=== PATIENT | male | born 1970 | race American Indian/Alaskan Native ===

== ENCOUNTER 2019-04-18 10:00 | Observation (INO) | payer BC ==
[2019-04-18] MEDS ORDERED: MECLIZINE 25 MG TAB PO ONE (10:13)
[2019-04-18] MEDS ORDERED: SODIUM CHLORIDE 0.9% 1000 ML 1,000 ML IV ONE (10:13)
--- NOTE | 2019-04-18 10:14 | Emergency Department Report ---
ED Dizziness HPI - General Stated Complaint: DIZZINESS Time Seen by Provider: 04/18/19 10:09 Source: patient - History of Present Illness Initial Comments: 48-year-old male with history of hypertension, diabetes, non-Hodgkin's lymphoma (currently in remission following bone marrow transplant), presents to the ED with dizziness. Patient accompanied his daughter to the emergency room so that she can be seen. While sitting in the chair as a visitor, patient reported to me that he was feeling dizzy. He reports a previous episode 1 month ago, in which she was diagnosed with vertigo. Patient states he was given a prescriptio n for some medication that he does not remember the name of, but did not use it. Patient states he was seen at [facility], did not have a head CT at that time. Patient reports sensation of room spinning, feeling as if he is going to pass out. Patient is clammy and diaphoretic. He denies headache, chest pain, shortness of breath, abdominal pain. He reports feeling nauseated currently. PCP: Dr Hurley @ [place] Complaint: dizziness -: minutes(s) (10) Timing: sudden onset Description: "room spinning", off-balance, nausea, near-syncope History of Same: Yes (once previously) Severity: moderate Improves With: nothing Worsens With: nothing Associated Symptoms: diaphoresis. denies: chest pain, fever/chills, shortness of breath - Related Data Allergies Allergy/AdvReac Type Severity Reaction Status Date / Time No Known Allergies Allergy Unverified 04/18/19 10:33 ED Review of Systems ROS: Stated complaint: DIZZINESS Other details as noted in HPI Comment: All other systems reviewed and negative Respiratory: denies: shortness of breath Cardiovascular: denies: chest pain, palpitations Gastrointestinal: nausea. denies: abdominal pain Neurological: vertigo. denies: headache, weakness, numbness, paresthesias ED Physical Exam - General General appearance: alert, in no apparent distress - Head Head exam: Present: atraumatic, normocephalic - Eye Eye exam: Present: normal appearance, PERRL, EOMI, nystagmus - ENT ENT exam: Present: mucous membranes moist - Neck Neck exam: Present: normal inspection - Respiratory Respiratory exam: Present: normal lung sounds bilaterally. Absent: respiratory distress - Cardiovascular Cardiovascular Exam: Present: regular rate, normal rhythm - GI/Abdominal GI/Abdominal exam: Present: soft. Absent: distended, tenderness - Extremities Exam Extremities exam: Present: normal inspection - Neurological Exam Neurological exam: Present: alert, oriented X3, CN II-XII intact, other ([id number] normal). Absent: motor sensory deficit - Psychiatric Psychiatric exam: Present: normal affect, normal mood - Skin Skin exam: Present: warm, dry, intact, normal color ED Course Vital Signs 04/18/19 04/18/19 10:07 10:14 Pulse Rate 85 84 Respiratory 17 17 Rate Blood Pressure 124/91 Blood Pressure 122/89 [Left] O2 Sat by Pulse 96 94 Oximetry - Reevaluation(s) Reevaluation #1: 04/18/19 12:39 Pt feeling much better following fluids and meclizine. Sitting up in stretcher using his laptop. However, CT shows extensive atherosclerotic plaques in carotids and vertebrobasilar system. Spoke w/ hopsitalist, Dr Thao, regarding admission. Will come down to see pt. ED Medical Decision Making - Lab Data Result diagrams: 04/18/19 10:33 04/18/19 10:33 - EKG Data -: EKG Interpreted by Wy EKG shows normal: sinus rhythm, intervals - EKG Data Interpretation: nonspecific ST-T wave mala - Radiology Data Radiology results: report reviewed, image reviewed - Medical Decision Making 48 yo M with history of hypertension, diabetes presents the ED with dizziness. CT head shows extensive atherosclerotic plaques in carotids and vertebrobasilar system. Glucose is elevated, however no signs of DKA. Following IV fluids and meclizine, patient is currently asymptomatic. Patient will be admitted by hospitalist for further management. - Differential Diagnosis vertigo, intracranial abnormality, ACS Critical care attestation.: If time is entered above; I have spent that time in minutes in the direct care of this critically ill patient, excluding procedure time. ED Disposition Clinical Impression: Hyperglycemia, Vertigo Disposition: DC-09 OP ADMIT IP TO THIS HOSP Is pt being admited?: Yes Condition: Stable Time of Disposition: 12:42
--- NOTE | 2019-04-18 11:22 | XRay Report ---
CHEST 1 VIEW INDICATION: dizziness. COMPARISON: None FINDINGS: SUPPORT DEVICES: Ewlcig-l-Sztw catheters tip in the superior vena cava-innominate vein junction HEART / MEDIASTINUM: No significant abnormality. LUNGS / PLEURA: Lung findings are decreased. No significant pulmonary or pleural abnormality. No pneu mothorax. ADDITIONAL FINDINGS: IMPRESSION: 1. Poor inspiratory effort Signer Name: Braulio oLuie MD Signed: 04/18/2019 11:18 AM Workstation Name: [id number]
[2019-04-18 11:24] LABS: Basophils # (Auto) 0.1 K/mm3 (0.0-0.1); Basophils % (Auto) 0.8 % (0.0-1.8); Eosinophils # (Auto) 0.2 K/mm3 (0.0-0.4); Eosinophils % (Auto) 2.7 % (0.0-4.3); Hematocrit 43.6 % (35.5-45.6); Lymphocytes # (Auto) 2.6 K/mm3 (1.2-5.4); Lymphocytes % (Auto) 35.3 % (13.4-35.0); Mean Corpuscular HGB Conc 34 % (32-34); Mean Corpuscular Volume 82 fl (84-94); Monocytes # (Auto) 0.5 K/mm3 (0.0-0.8); Monocytes % (Auto) 7.3 % (0.0-7.3); Platelet Count 200 K/mm3 (140-440); Red Blood Count 5.32 M/mm3 (3.65-5.03); Red Cell Distribution Width 14.7 % (13.2-15.2)
[2019-04-18 11:33] LABS: INR 0.99 (0.87-1.13); Partial Thromboplastin Time 21.2 Sec. (24.2-36.6)
[2019-04-18 11:40] LABS: Blood Urea Nitrogen 16 mg/dL (9-20)
[2019-04-18 12:00] LABS: BUN/Creatinine Ratio 23; Calcium 9.7 mg/dL (8.4-10.2); Hemolysis Index 95
--- NOTE | 2019-04-18 12:24 | Cat Scan Report ---
CT HEAD WITHOUT CONTRAST INDICATION / CLINICAL INFORMATION: dizziness. TECHNIQUE: All CT scans at this location are performed using CT dose reduction for ALARA by means of automated e xposure control. COMPARISON: None available. FINDINGS: HEMORRHAGE: No evidence of intracranial hemorrhage or extra-axial fluid collection. EXTRA-AXIAL SPACES: Cortical sulci, sylvian fissures and basilar cisterns have an unremarkable appear ance. VENTRICULAR SYSTEM: The ventricular system is of normal size and configuration. CEREBRAL PARENCHYMA: No areas of abnormal brain parenchymal attenuation are identified. There is no i ndication of recent infarction. MIDLINE SHIFT OR HERNIATION: There is no mass effect. CEREBELLUM / BRAINSTEM: Brainstem and cerebellum have an unremarkable appearance. INTRACRANIAL VESSELS: Calcified atherosclerotic plaque is present along the course of the cavernous s egments of both internal carotid arteries. Extensively calcified plaque is seen at the distal vertebr al arteries and the extent in the proximal basilar artery. These are unusual findings in a 48-year-ol d individual. There history of diabetes, renal failure or other risk factors for premature intercrani al atherosclerosis ORBITS: visualized portions of the orbits have an unremarkable appearance. SOFT TISSUES of HEAD: No significant abnormality. CALVARIUM: Evaluation of bone windows reveals no abnormalities. PARANASAL SINUSES / MASTOID AIR CELLS: Paranasal sinuses are free from inflammatory mucosal disease. Mastoid air cells are normally pneumatized. ADDITIONAL FINDINGS: None. IMPRESSION: 1. Extensively calcified atherosclerotic plaque along the internal carotid arteries and vertebrobasil ar system. This is an unusual finding in a 48-year-old individual and reflects the presence of an unu sual degree of intercranial atherosclerotic disease. 2. No acute intracranial abnormality. Signer Name: Mynor Arellano MD Signed: 04/18/2019 12:19 PM Workstation Name: [id number]
--- NOTE | 2019-04-18 13:30 | History and Physical Report ---
History of Present Illness Date of examination: 04/18/19 Date of admission: 04/18/19 Chief complaint: Near pass out 1 hr History of present illness: 48-year-old male with history of hypertension, diabetes, non-Hodgkin's lymphoma (currently in remission following bone marrow transplant), presents to the ED with dizziness. Patient accompanied his daughter to the emergency room so that she can be seen. While sitting in the chair as a visitor, patient reported to [facility] he was feeling dizzy. He reports a previous episode 1 month ago, in which she was diagnosed with vertigo. Patient states he was given a prescription for some medication that he does not remember the name of, but did not use it. Patient states he was seen at [facility], did not have a head CT at that time. Patient reports sensation of room spinning, feeling as if he is going to pass out. Patient is clammy and diaphoretic. He denies headache, chest pain, shortness of breath, abdominal pain. He reports feeling nauseated currently.He nearly passed out.No chest pain. Past History Past Medical History: diabetes, hypertension Past Surgical History: No surgical history Social history: lives with family, full code Family history: hypertension Medications and Allergies Allergies Allergy/AdvReac Type Severity Reaction Status Date / Time No Known Allergies Allergy Unverified 04/18/19 10:33 Home Medications Medication Instructions Recorded Confirmed Last Taken Type Glimepiride [Amaryl] 4 mg PO QAM 04/18/19 04/18/19 1 Day Ago History ~04/17/19 amLODIPine [Norvasc] 10 mg PO DAILY 04/18/19 04/18/19 1 Day Ago History ~04/17/19 lisinopriL [Zestril TAB] 40 mg PO QDAY 04/18/19 04/18/19 1 Day Ago History ~04/17/19 Review of Systems All systems: negative Constitutional: sweats, no weight loss, no weight gain, no fever, no chills, no night sweats Ears, nose, mouth and throat: no ear pain, no ear discharge, no tinnitis, no decreased hearing, no nose pain Cardiovascular: no chest pain, no orthopnea, no palpitations, no rapid/irregular heart beat, no edema Gastrointestinal: no abdominal pain, no nausea, no vomiting, no diarrhea Genitourinary Male: no dysuria, no hematuria Rectal: no pain Musculoskeletal: no neck stiffness, no neck pain, no shooting arm pain Integumentary: no rash, no pruritis, no redness, no sores Neurological: vertigo, other (Near syncope), no seizures Endocrine: polydipsia, polyuria, no cold intolerance, no heat intolerance, no weight change Hematologic/Lymphatic: no easy bruising, no easy bleeding Allergic/Immunologic: no urticaria, no allergic rhinitis Exam - Constitutional Vitals: Temp Pulse Resp BP Pulse Ox 84 17 122/89 94 04/18/19 10:14 04/18/19 10:14 04/18/19 10:14 04/18/19 10:14 General appearance: Present: no acute distress, well-nourished - EENT Eyes: Present: PERRL ENT: hearing intact, clear oral mucosa - Neck Neck: Present: supple, normal ROM - Respiratory Respiratory effort: normal Respiratory: bilateral: CTA - Cardiovascular Heart rate: 78 Rhythm: regular Heart Sounds: Present: S1 & S2. Absent: rub, click - Extremities Extremities: pulses symmetrical, No edema Peripheral Pulses: within normal limits - Abdominal General gastrointestinal: Present: soft, non-tender, non-distended, normal bowel sounds Male genitourinary: Present: normal - Integumentary Integumentary: Present: clear, warm, dry - Musculoskeletal Musculoskeletal: gait normal, strength equal bilaterally - Psychiatric Psychiatric: appropriate mood/affect, intact judgment & insight - Neurologic Neurologic: CNII-XII intact, moves all extremities - Allied Health Allied health notes reviewed: nursing, case management LORE score - Lore Score Age > 65: (0) No Aspirin use within the Past 7 Days: (0) No 3 or more CAD Risk Factors: (1) Yes 2 or more Angina events in past 24 hrs: (0) No Known CAD with more than 50% Stenosis: (0) No Elevated Cardiac Markers: (0) No ST Deviation Greater than 0.5mm: (0) No LORE Score: 1 Results - Labs CBC & Chem 7: 04/18/19 10:33 04/18/19 10:33 Labs: Laboratory Last Values WBC 7.5 K/mm3 (4.5-11.0) 04/18/19 10:33 RBC 5.32 M/mm3 (3.65-5.03) H 04/18/19 10:33 Hgb 15.0 gm/dl (11.8-15.2) 04/18/19 10: Hct 43.6 % (35.5-45.6) 04/18/19 10: MCV 82 fl (84-94) L 04/18/19 10: MCH 28 pg (28-32) 04/18/19 10: MCHC 34 % (32-34) 04/18/19 10: RDW 14.7 % (13.2-15.2) 04/18/19 10: Plt Count 200 K/mm3 (140-440) 04/18/19 10: Lymph % (Auto) 35.3 % (13.4-35.0) H 04/18/19: [place] % (Auto) 7.3 % (0.0-7.3) 04/18/19 10: Eos % (Auto) 2.7 % (0.0-4.3) 04/18/19 10: Baso % (Auto) 0.8 % (0.0-1.8) 04/18/19 10: Lymph # 2.6 K/mm3 (1.2-5.4) 04/18/19 10: [place] # 0.5 K/mm3 (0.0-0.8) 04/18/19 10: Eos # 0.2 K/mm3 (0.0-0.4) 04/18/19 10: Baso # 0.1 K/mm3 (0.0-0.1) 04/18/19 10: Seg Neutrophils % 53.9 % (40.0-70.0) 04/18/19 10: Seg Neutrophils # 4.0 K/mm3 (1.8-7.7) 04/18/19 10: PT 13.2 Sec. (12.2-14.9) 04/18/19 10: INR 0.99 (0.87-1.13) 04/18/19 10: APTT 21.2 Sec. (24.2-36.6) L 04/18/19 10: Sodium 138 mmol/L (137-145) 04/18/19 10: Potassium 4.4 mmol/L (3.6-5.0) 04/18/19 10:33 Chloride 97.8 mmol/L (98-107) L 04/18/19 10:33 Carbon Dioxide 23 mmol/L (22-30) 04/18/19 10:33 Anion Gap 22 mmol/L 04/18/19 10:33 BUN 16 mg/dL (9-20) 04/18/19 10:33 Creatinine 0.7 mg/dL (0.8-1.5) L 04/18/19 10:33 Estimated GFR > 60 ml/min 04/18/19 10:33 BUN/Creatinine Ratio 23 % 04/18/19 10:33 Glucose 400 mg/dL (75-100) H 04/18/19 10:33 POC Glucose 321 (70-105) H 04/18/19 10:16 Calcium 9.7 mg/dL (8.4-10.2) 04/18/19 10:33 Troponin T < 0.010 ng/mL (0.00-0.029) 04/18/19 10:33 Short CBC 04/18/19 Range/Units 10:33 WBC 7.5 (4.5-11.0) K/mm3 Hgb 15.0 (11.8-15.2) gm/dl Hct 43.6 (35.5-45.6) % Plt Count 200 (140-440) K/mm3 BMP 04/18/19 10:33 Sodium 138 Potassium 4.4 Chloride 97.8 L Carbon Dioxide 23 BUN 16 Creatinine 0.7 L Glucose 400 H Calcium 9.7 Cardiac Enzymes 04/18/19 Range/Units 10:33 Troponin T < 0.010 (0.00-0.029) ng/mL - Imaging and Cardiology EKG: report reviewed Chest x-ray: report reviewed Imaging and Cardiology: CT HEAD IMPRESSION: 1. Extensively calcified atherosclerotic plaque along the internal carotid arteries and vertebrobasilar system. This is an unusual finding in a 48-year-old individual and reflects the presence of an unusual degree of intercranial atherosclerotic disease. 2. No acute intracranial abnormality. Assessment and Plan Advance Directives: Yes (Full code) VTE prophylaxis?: Chemical Plan of care discussed with patient/family: Yes - Patient Problems (1) Near syncope Current Visit: Yes Status: Acute Plan to address problem: Near syncope work up CDS and Lexiscan (2) HTN (hypertension) Current Visit: Yes Status: Chronic Qualifiers: Hypertension type: essential hypertension Qualified Code(s): I10 - Essential (primary) hypertension Plan to address problem: Changed to Losartan 100 mg po qd (3) T2DM (type 2 diabetes mellitus) Current Visit: Yes Status: Chronic Qualifiers: Diabetes mellitus correction insulin use: without correction use Plan to address problem: Uncontrollled Wasnoncompliant Started on Lantus in AM Glimepiride stopped COnt Metformin Chek A1c PCp to adjust meds Noncompliance till now b/sc of insurance issues (4) DVT prophylaxis Current Visit: Yes Status: Acute Plan to address problem: On Heparin and GI prophylaxis
[2019-04-19] MEDS ORDERED: LOSARTAN 50 MG TAB PO SCH (08:00)
[2019-04-19] MEDS ORDERED: ONDANSETRON 4 MG/2 ML INJ IV PRN (08:00)
[2019-04-19] MEDS ORDERED: INSULIN GLARGINE 100 UNITS/ML SUB-Q SCH (08:00)
[2019-04-19] MEDS ORDERED: HYDROmorphone 1 MG/1 ML INJ IV PRN (08:00)
[2019-04-19] MEDS ORDERED: ACETAMINOPHEN 325 MG TAB PO PRN (08:00)
[2019-04-19] MEDS ORDERED: oxyCODONE /ACETAMINOPHEN 5-325MG TAB PO PRN (08:00)
[2019-04-19 08:07] LABS: Hematocrit 44.8 % (35.5-45.6); Hemoglobin 15.4 gm/dl (11.8-15.2); Mean Corpuscular HGB Conc 34 % (32-34); Mean Corpuscular Volume 82 fl (84-94); Platelet Count 199 K/mm3 (140-440); Red Blood Count 5.47 M/mm3 (3.65-5.03); Red Cell Distribution Width 14.8 % (13.2-15.2)
[2019-04-19 08:28] LABS: Alanine Aminotransferase 26 units/L (7-56); Albumin 4.2 g/dL (3.9-5); BUN/Creatinine Ratio 19; Blood Urea Nitrogen 15 mg/dL (9-20); Calcium 9.6 mg/dL (8.4-10.2); Hemolysis Index 31
[2019-04-19] MEDS: INSULIN LISPRO 100 UNIT/ML SUB-Q SCH ×2 (08:58→16:22)
[2019-04-19 09:32] LABS: Basophils % (Manual) 0 % (0.0-1.8); Large Platelets Few; Target Cells Rare; Total Cells Counted 100
[2019-04-19 09:33] LABS: Platelet Estimate Consistent w Auto
[2019-04-19] MEDS ORDERED: amLODIPine 10 MG TAB PO SCH (10:00)
[2019-04-19] MEDS ORDERED: HEPARIN 5,000 UNIT/1 ML VIAL SUB-Q SCH (10:00)
[2019-04-19] MEDS ORDERED: FAMOTIDINE 20 MG TAB PO SCH (10:00)
[2019-04-19] MEDS ORDERED: LISINOPRIL 40 MG TAB PO SCH (10:00)
--- NOTE | 2019-04-19 11:59 | Vascular Lab Report ---
"DUPLEX DOPPLER ULTRASOUND CAROTID, BILATERAL INDICATION: Near syncope. COMPARISON: None available. FINDINGS: RIGHT CAROTID: No significant atherosclerotic plaque. CCA velocity: 87 cm/sec. ICA peak systolic velocity: 56 cm/sec. ICA/CCA PSV Ratio: 0.6. Right Vertebral Artery: Heavily calcified with very minimal flow which is antegrade. LEFT CAROTID: No significant atherosclerotic plaque. CCA velocity: 90 cm/sec. ICA peak systolic velocity: 72 cm/sec. ICA/CCA PSV Ratio: 0.8. Left Vertebral Artery: Antegrade flow. IMPRESSION: 1. Right Internal Carotid Artery: Less than 50% diameter stenosis. 2. Left Internal Carotid Artery: Less than 50% diameter stenosis. Velocity criteria are extrapolated from diameter data as defined by the Society of Radiologists in Ul trasound Consensus Conference, Radiology 2003; 229;340-346. Degree of || ICA PSV || Plaque || ICA/CCA Stenosis (%) || (cm/sec) || estimate (%) || PSV Ratio - Normal...............<125..............None.................<2.0 - <50....................<125..............<50....................<2.0 - 50-69................125-230.........>50....................2.0-4.0 - >70 but <100....>230..............>50....................>4.0 - Near...................High, low, .....visible................variable occlusion or none - Total...................None.............visible;................N/A occlusion no lumen Signer Name: Willis Pate MD Signed: 04/19/2019 11:54 AM Workstation Name: [id number]"
[2019-04-19] MEDS ORDERED: PNEUMOCOCCAL 23 Valent 0.5 ML VIAL IM ONE (12:00)
--- NOTE | 2019-04-19 13:19 | Discharge Summary ---
Providers - Providers Date of Admission: 04/18/19 15:17 Date of discharge: 04/19/19 Attending physician: NIKA SALAZAR 04/19/19 07:10 Consult to Physician [CONS] Routine Comment: Consulting Provider: RENEE LOWE Physician Instructions: Reason For Exam: Extensive carotid plaque and calcification Primary care physician: COURTNEY SOTELO Hospitalization Condition: Stable Hospital course: Discharge diagnosis: (1) Near syncope, likely from hyperglycemia CT head showed carotid artery calcified plaque but us showed <50% stenosis (2) HTN (hypertension) cont amlodipine and lisinopril (3) T2DM (type 2 diabetes mellitus), uncontrolled Noncompliance till now b/sc of insurance issues placed on metformin and NPH 70/30 (4) h/o lymphoma, outpt f/u Disposition: DC/[place]-06 HOME UNDER HOME HL[facility] Time spent for discharge: 34 minutes Core Measure Documentation - Palliative Care Palliative Care/ Comfort Measures: Not Applicable - Core Measures Any of the following diagnoses?: none Exam - Constitutional Vitals: Temp Pulse Resp BP Pulse Ox 97.9 F 92 H 18 140/97 93 04/19/19 07:43 04/19/19 10:25 04/19/19 07:43 04/19/19 07:43 04/19/19 03:20 General appearance: Present: no acute distress, obese - EENT Eyes: Present: PERRL ENT: hearing intact, clear oral mucosa - Neck Neck: Present: supple, normal ROM - Respiratory Respiratory effort: normal Respiratory: bilateral: CTA - Cardiovascular Heart Sounds: Present: S1 & S2. Absent: rub, click - Extremities Extremities: pulses symmetrical, No edema Peripheral Pulses: within normal limits - Abdominal General gastrointestinal: Present: soft, non-tender, non-distended, normal bowel sounds - Integumentary Integumentary: Present: clear, warm, dry - Musculoskeletal Musculoskeletal: gait normal, strength equal bilaterally - Psychiatric Psychiatric: appropriate mood/affect, intact judgment & insight - Neurologic Neurologic: CNII-XII intact, moves all extremities Plan Activity: advance as tolerated Weight Bearing Status: Weight Bear as Tolerated Diet: diabetic Special Instructions: home health RN (for Bg monitoring) Additional Instructions: Please chesk BG before meal three times a day Follow up with: COURTNEY SOTELO MD [Primary Care Provider] - 7 Days Prescriptions: Metformin HCl [metFORMIN] 500 mg PO BID #60 tablet Insulin NPH/Regular [NovoLIN 70/30] 10 unit SUB-Q BIDDIAB #30 units Other Discharge Orders: Glucometer (Amb) Location: None Selected Glucometer supplies[Amb] Location: None Selected
[2019-04-19 13:59] VITALS: BP 133/96
[2019-04-19] MEDS ORDERED: INSULIN NPH/REGULAR 70/30 INJ SUB-Q SCH (17:00)
--- NOTE | 2019-04-19 22:27 | Treadmill Report ---
THALLIUM STRESS TEST LEFT VENTRICLE: Left ventricle appears mildly dilated. Perfusion study demonstrates fairly homogeneous uptake of the tracer in all segments, no significant defects identified. Mild diaphragmatic attenuation artifact is noted. Gated analysis suggests mild left ventricular systolic dysfunction with ejection fraction calculated at 40%. CONCLUSION: Evidence of mild dilated cardiomyopathy with mild left ventricular systolic dysfunction, ejection fraction 40%. Perfusion study demonstrates homogeneous uptake, suggesting a mild nonischemic cardiomyopathy. Clinical correlation is recommended. JOB# [id number] CA/NTS
[2019-04-20] MEDS ORDERED: GLIMEPIRIDE 4 MG TAB PO SCH (10:00)
== END 2019-04-19 17:15 | disposition home health service (06) ==
LOC: ED 10:00 → 4A 15:17
PROVIDERS: ADMIT Internal Medicine; ATTEND Internal Medicine
DX: E11.65 Type 2 diabetes mellitus with hyperglycemia (principal); I10 Essential (primary) hypertension; R55 Syncope and collapse; R42 Dizziness and giddiness; Z79.899 Other long term (current) drug therapy; Z85.72 Personal history of non-Hodgkin lymphomas
CPT/HCPCS: 36415; 70450; 71045; 78452; 80048; 80053; 82962; 83036; 84484; 85007; 85025; 85610; 85730; 93005; 93010; 93017; 93880; 96360; 96372; 99285; A9502; G0378; J1644; J7030; 90732; J1815